=== PATIENT | female | born 1995 | race Caucasian/White ===

== ENCOUNTER 2018-12-22 16:04 | Emergency (ER) | payer OTHER ==
[2018-12-22] MEDS ORDERED: ONDANSETRON HCL INJ/PF 4 MG/2 ML SDV IV ONE (17:31)
[2018-12-22] MEDS ORDERED: KETOROLAC TROMETHAMINE INJ/PF 30 MG/1 ML SDV IV ONE (17:31)
[2018-12-22] MEDS ORDERED: NORMAL SALINE 1000 ML 1,000 ML IV ONE (17:31)
--- NOTE | 2018-12-22 17:39 | ER Document Report ---
ED GI/ - General Chief Complaint: Abdominal Pain Stated Complaint: ABDOMINAL PAIN Time Seen by Provider: 12/22/18 17:23 Primary Care Provider: MURALI CALI [NO LOCAL MD] - Follow up as needed Mode of Arrival: Ambulatory Information source: Patient Notes: 23-year-old female presented to ED for complaint of lower abdominal lower back and upper abdominal pain since yesterday. She states that she had an IUD put in the last week and it was cramping right after the IUD was placed and then now the pain is much worse. She states she was on her period when the IUD was placed and then it stopped and now it started again. She states she is also had nausea vomiting and diarrhea since yesterday. Patient is alert oriented respirations regular and unlabored speaking in full sentences she is able to walk with even steady gait. TRAVEL OUTSIDE OF THE [place] IN LAST 30 DAYS: No - HPI Patient complains to provider of: Abdominal pain, Diarrhea, Pelvic pain, Vomiting Onset: Other - 2 days Timing/Duration: Gradual, Worse Quality of pain: Sharp, Throbbing Severity at maximum: Severe Severity in ED: Moderate Pain Level: 3 Location: Epigastric, Low back, Suprapubic Vaginal bleeding (Compared to normal period): Spotting LMP: Last week IUD placed last week Sexual history: IUD Associated symptoms: Chills, Diarrhea, Nausea, Vomiting Exacerbated by: Movement, Walking Relieved by: Denies Similar symptoms previously: Yes Recently seen / treated by doctor: No - Related Data Allergies/Adverse Reactions: No Known Allergies Allergy (Verified 12/22/18 16:11) Past Medical History - General Information source: Patient - Social History Smoking Status: Never Smoker Frequency of alcohol use: Social Drug Abuse: Marijuana Lives with: Family Family History: Reviewed & Not Pertinent Patient has suicidal ideation: No Patient has homicidal ideation: No - Past Medical History Cardiac Medical History: Reports: None Pulmonary Medical History: Reports: None EENT Medical History: Reports: None Neurological Medical History: Reports: None Endocrine Medical History: Reports: None Renal/ Medical History: Reports: None Malignancy Medical History: Reports: None GI Medical History: Reports: None Musculoskeletal Medical History: Reports None Skin Medical History: Reports None Psychiatric Medical History: Reports: None Traumatic Medical History: Reports: None Infectious Medical History: Reports: None Surgical Hx: Negative Past Surgical History: Reports: None - Immunizations Immunizations up to date: Yes Review of Systems - Review of Systems Constitutional: No symptoms reported EENT: No symptoms reported Cardiovascular: No symptoms reported Respiratory: No symptoms reported Gastrointestinal: Abdominal pain, Diarrhea, Nausea, Vomiting Genitourinary: Other - iud last week Female Genitourinary: No symptoms reported Musculoskeletal: No symptoms reported Skin: No symptoms reported Hematologic/Lymphatic: No symptoms reported Neurological/Psychological: No symptoms reported -: Yes All other systems reviewed and negative Physical Exam - Vital signs Vitals: Temp Pulse Resp BP Pulse Ox 98.7 F 115 H 16 120/53 L 100 12/22/18 16:14 12/22/18 16:14 12/22/18 16:14 12/22/18 16:14 12/22/18 16:14 Interpretation: Normal - General General appearance: Appears well, Alert - HEENT Head: Normocephalic, Atraumatic Eyes: Normal Pupils: PERRL - Respiratory Respiratory status: No respiratory distress Chest status: Nontender Breath sounds: Normal Chest palpation: Normal - Cardiovascular Rhythm: Regular Heart sounds: Normal auscultation Murmur: No - Abdominal Inspection: Normal Distension: No distension Bowel sounds: Normal Tenderness: Tender - upper, suprapubic and pelvic Organomegaly: No organomegaly - Back Back: Normal, Nontender - Extremities General upper extremity: Normal inspection, Nontender, Normal color, Normal ROM, Normal temperature General lower extremity: Normal inspection, Nontender, Normal color, Normal ROM, Normal temperature, Normal weight bearing. No: Enzo's sign - Neurological Neuro grossly intact: Yes Cognition: Normal Orientation: AAOx4 [place] Coma Scale Eye Opening: Spontaneous Lady Coma Scale Verbal: Oriented Lady Coma Scale Motor: Obeys Commands Lady Coma Scale Total: 15 Speech: Normal Motor strength normal: LUE, RUE, LLE, RLE Sensory: Normal - Psychological Associated symptoms: Normal affect, Normal mood - Skin Skin Temperature: Warm Skin Moisture: Dry Skin Color: Normal Course - Re-evaluation Re-evalutation: 12/22/18 21:52 Discussed labs and ultrasound with patient and mother. Patient still refused a pelvic exam. I went and consulted Dr. Bowen. He states that the patient needed a pelvic exam before discharge. I went back and discussed this with the patient explained to her that she needed this before I could discharge her. She did agree to get the pelvic exam. She did have right adnexal tenderness but no cervical motion tenderness. She does have a bloody discharge wet mount and GC and chlamydia were sent to the lab. - Vital Signs Vital signs: Temp Pulse Resp BP Pulse Ox 98.7 F 92 18 128/96 H 100 12/22/18 16:14 12/22/18 22:46 12/22/18 22:46 12/22/18 22:46 12/22/18 22:46 - Laboratory Result Diagrams: 12/22/18 18:00 12/22/18 18:00 Laboratory results interpreted by me: 12/22/18 12/22/18 12/22/18 14:49 18:00 18:00 WBC 18.6 H Seg Neuts % (Manual) 86 H Lymphocytes % (Manual) 11 L Monocytes % (Manual) 2 L Abs Neuts (Manual) 16.0 H Glucose 113 H Urine Protein 100 H Urine Ketones 80 H Urine Blood LARGE H Ur Leukocyte Esterase MODERATE H - Diagnostic Test Radiology reviewed: Image reviewed, Reports reviewed Discharge - Discharge Clinical Impression: Pelvic pain, PID (acute pelvic inflammatory disease) UTI (urinary tract infection) Qualifiers: Urinary tract infection type: acute cystitis Hematuria presence: with hematuria Qualified Code(s): N30.01 - Acute cystitis with hematuria Condition: Stable Disposition: HOME, SELF-CARE Additional Instructions: PELVIC PAIN: There are many causes of pain in the pelvic area. The cause could be the tubes, ovaries, uterus, intestines, appendix, pelvic muscles and connective tissue, or the urinary tract. The cause of your pelvic pain is not clear. However, it seems safe to treat you outside the hospital. If the pain sounds like a temporary problem, we sometimes wait to see if it goes away. Other patients may need additional tests, such as pelvic ultrasound or cultures. Conditions may change. Call us or come back for reexamination if any problems occur, such as: (1) Pain that becomes more severe, steady, or becomes concentrated in one specific area. Also, pain that is more severe with movement or coughing. (2) Vomiting that persists or becomes more frequent. (3) Blood in the vomitus, urine, or bowel movements. Blood in the stool may have a tarry or black appearance. (4) Shaking chills or fever greater than 100 degrees. (5) The abdomen becomes more distended or swollen. (6) Bowel movements cease. (7) Heavy vaginal bleeding. PELVIC INFLAMMATORY DISEASE: You have been diagnosed as having pelvic inflammatory disease (PID). This is an infection of the fallopian tubes and surrounding areas of the pelvis. Symptoms are usually pelvic pain and discharge. The infection can do permanent damage to the tubes and ovaries. It should be taken very seriously. Treatment is antibiotics, which may be given by vein or by injection if the infection seems serious. It's important that you receive all recommended medication. Condoms help prevent spread of this infection to others. Because this infection is spread sexually, it's important that your sexual partner be checked before resuming sexual relations. If a culture shows gonorrhea or chlamydia organisms, the law requires that this be reported to the health department. Call the doctor or return at once if you develop increasing fever, rash, severe pelvic pain, vaginal bleeding (other than your period), or problems with your bladder or bowels. URINARY TRACT INFECTION: Your evaluation indicates that you have a urinary tract infection. This is due to germs growing in the bladder. This is a common problem. This infection usually responds quickly to antibiotics. Your antibiotic should be taken exactly as prescribed. Drink plenty of fluids -- three to four quarts a day. Occasionally, a bladder anesthetic will be prescribed to help stop the feeling of urgency until the antibiotic has a chance to clear the infection. This may cause your urine to be dark orange. Certain urine infections require a culture. If the doctor obtained a culture, the results will be back in two days. You should call to see if a change in treatment is needed. A repeat urinalysis after you finish treatment is often recommended. The physician will let you know if further testing is required. Call the doctor if you develop fever, chills, flank pain, inability to urinate, or blood in the urine. I only have one person with left which was [id number] they must and I do not most the patient is here along with just doing now TORADOL INJECTION: You have been given an injection of ketorolac tromethamine (Toradol). This is an excellent, safe drug for pain control. It also has potent a ntiinflammatory action. You should have significant pain relief within about one hour. Toradol is not addicting and is non-sedating. It does not interfere with driving or work. Call or return if you develop itching, hives, shortness of breath, or rash. ANTIBIOTIC THERAPY: You have been given an antibiotic prescription. It's important that you take all the medication, unless instructed otherwise by your physician. Failure to complete the entire course can result in relapse of your condition. Common side effects of antibiotics include nausea, intestinal cramping, or diarrhea. Women may develop vaginal yeast infections, and babies can get yeast (thrush) in the mouth following the use of antibiotics. Contact your physician if you develop significant side effects from this medication. Allergy to this antibiotic can result in hives, wheezing, faintness, or itching. If symptoms of allergy occur, stop the medication and call the doctor. CEPHALOSPORINS: An antibiotic of the cephalosporin class has been prescribed. This type of antibiotic covers a wide variety of infections, including those of the skin, lungs, middle ear, and urinary tract. This antibiotic is somewhat similar to the penicillin family. In rare cases, a person who is allergic to penicillin will also be allergic to this medication. If you have had a severe allergic reaction to penicillin, and have not taken this antibiotic since that time, notify your doctor. Antibiotics which cover many germs ("broad spectrum" antibiotics) are more likely to cause diarrhea or "yeast" infections. Women prone to vaginal yeast problems may suffer an attack after taking this antibiotic. In infants, oral thrush (white spots "stuck" on the cheek) or yeast diaper rash may result. See your doctor if these problems occur. Call the doctor at once if you develop hives, itching, shortness of breath, or lightheadedness. DOXYCYCLINE: Doxycycline (Vibramycin, Doryx) is an antibiotic of the tetracycline family. This type of drug is useful for infections of the respiratory tract and genital tract, and is sometimes used for intestinal infections. Unlike most tetracyclines, doxycycline can be taken with food. It is longer acting, and (usually) less prone to side effects than regular tetracycline. Tetracycline antibiotics can stain immature teeth and SHOULD NOT BE TAKEN BY CHILDREN, NURSING MOTHERS, OR WOMEN. Tetracyclines can make you more prone to sunburn. Abdominal cramping, nausea, and diarrhea are occasional side effects. Women may experience vaginal yeast infections. Call the doctor at once if you develop hives, itching, shortness of breath, or lightheadedness. AZITHROMYCIN: Azithromycin (Zithromax) is a broad spectrum antibiotic in the same class as erythromycin. It can treat a variety of bacterial infections, but is most frequently used for respiratory infections. Azithromycin is extremely long-lasting. It accumulates in body tissues and continues to kill bacteria for many days. In order to improve absorption, Azithromycin should be taken at least one hour before or two hours after a meal. It does not have the same strong tendency to upset the stomach as erythromycin and is usually very well claire ated. Patients who have had a rash or other true allergic reactions to erythromycin should not take this medication. Call if you develop gastrointestinal distress, severe diarrhea, rash, hives, itching, or shortness of breath. Please call me in about 45 minutes for the results of your wet mount which is the trichomonas bacterial vaginosis and yeast. Then you could call me in about 2 hours for the results of your GC and chlamydia if you need any prescriptions I will leave them at the front services agent as we described. You have already been treated with the Rocephin and azithromycin and doxycycline and you will get a prescription for the doxycycline. FOLLOW-UP CARE: If you have been referred to a physician for follow-up care, call the physicians office for an appointment as you were instructed or within the next two days. If you experience worsening or a significant change in your symptoms, notify the physician immediately or return to the Emergency Department at any time for re-evaluation. Prescriptions: Doxycycline Hyclate 100 mg PO BID #14 capsule Metronidazole [Flagyl 500 mg Tablet] 500 mg PO BID #14 tablet Referrals: LOCAL,NO [NO LOCAL MD] - Follow up as needed
[2018-12-22 18:02] LABS: APPEARANCE,URINE SLIGHTLY-CLOUDY; BILIRUBIN,URINE NEGATIVE (NEGATIVE); GLUCOSE, URINE NEGATIVE (NEGATIVE); KETONES,URINE 80 mg/dL (NEGATIVE); LEUKOCYTE ESTERASE,URINE MODERATE (NEGATIVE); NITRITE,URINE NEGATIVE (NEGATIVE); PROTEIN,URINE 100 mg/dL (NEGATIVE); URINE SPECIFIC GRAVITY 1.028; UROBILINOGEN,URINE NEGATIVE mg/dL (<2.0)
[2018-12-22 18:03] LABS: COLOR,URINE YELLOW
[2018-12-22 18:26] LABS: HEMATOCRIT 39.6 % (36.0-47.0); HEMOGLOBIN 13.3 g/dL (12.0-15.5); MEAN CORPUSCULAR HEMOGLOBIN 30.4 pg (27.0-33.4); MEAN CORPUSCULAR HGB CONC 33.7 g/dL (32.0-36.0); MEAN CORPUSCULAR VOLUME 90 fl (80-97); PLATELET COUNT 335 10^3/uL (150-450); RED BLOOD COUNT 4.38 10^6/uL (3.72-5.28); RED CELL DISTRIBUTION WIDTH 13.3 % (11.5-14.0); WHITE BLOOD COUNT 18.6 10^3/uL (4.0-10.5)
[2018-12-22 18:41] LABS: ALBUMIN 4.2 g/dL (3.5-5.0); ALKALINE PHOSPHATASE 85 U/L (38-126); ANION GAP 12 (5-19); ASPARTATE AMINO TRANSFERASE 21 U/L (14-36); BILIRUBIN,DIRECT 0.4 mg/dL (0.0-0.4); BILIRUBIN,TOTAL 1.3 mg/dL (0.2-1.3); BLOOD UREA NITROGEN 7 mg/dL (7-20); CALCIUM 9.4 mg/dL (8.4-10.2); CARBON DIOXIDE 23 mmol/L (22-30); CHLORIDE 102 mmol/L (98-107); GLUCOSE 113 mg/dL (75-110); POTASSIUM 4.2 mmol/L (3.6-5.0); TOTAL PROTEIN 7.4 g/dL (6.3-8.2)
[2018-12-22 19:02] LABS: ABSOLUTE MONOCYTES # (MANUAL) 0.4 10^3/uL (0.1-1.4); BASOPHILS % (MANUAL) 1 % (0-2); EOSINOPHILS % (MANUAL) 0 % (0-6); LYMPHOCYTES % (MANUAL) 11 % (13-45); MONOCYTES % (MANUAL) 2 % (3-13); SEGMENTED NEUTROPHILS % (MAN) 86 % (42-78); TOTAL CELLS COUNTED 100
[2018-12-22 19:03] LABS: PLATELET COMMENT ADEQUATE; PLATELET LARGE PRESENT
--- NOTE | 2018-12-22 20:35 | RADIOLOGY REPORT (SQ) ---
US PELVIS EXAM DATE: 12/22/2018 5:32 PM CDT HISTORY: Pelvic pain. COMPARISON: None. TECHNIQUE: Grayscale, color Doppler, and spectral Doppler ultrasound images of the pelvis were obtained. FINDINGS: The uterus is retroverted and measures 7.5 x 4.5 x 4.8 cm. The cervix measures 2.1 cm in length. There is an intrauterine device which appears in appropriate position. The ovaries are normal in size with normal follicles and contain normal color Doppler blood flow. There is a small amount of pelvic free fluid in the posterior cul-de-sac. IMPRESSION: IUD in appropriate position. Normal ovaries.
[2018-12-22] MEDS ORDERED: CEFTRIAXONE INJ 250 MG VIAL IM ONE (21:44)
[2018-12-22] MEDS ORDERED: DOXYCYCLINE HYCLATE 100 MG TABLET PO ONE (21:44)
[2018-12-22] MEDS ORDERED: LIDOCAINE 1% INJ-PF (10 MG/ML) 30 ML SDV INJ ONE (21:44)
[2018-12-22] MEDS ORDERED: AZITHROMYCIN 250 MG TABLET PO ONE (21:44)
[2018-12-22] MEDS ORDERED: HYDROCODONE/ACETAMINOPHEN 5-325 MG TABLET PO ONE (22:37)
[2018-12-22 22:47] VITALS: BP 128/96
[2018-12-22 22:54] LABS: RBCS (WET MOUNT) 1+ RBCS SEEN; T.VAGINALIS (WET MOUNT) NO TRICHOMONAS SEEN; YEAST (WET MOUNT) NO YEAST SEEN
[2018-12-22 22:55] LABS: WBCS (WET MOUNT) RARE WBCS SEEN
[2018-12-23 00:16] LABS: CHLAM PCR NOT DETECTED (NOT DETECT)
== END 2018-12-22 22:51 | disposition home or self-care (01) ==
LOC: ER 16:04
DX: N30.01 Acute cystitis with hematuria (principal); N73.9 Female pelvic inflammatory disease, unspecified; R10.2 Pelvic and perineal pain; R10.30 Lower abdominal pain, unspecified; M54.5 Low back pain; R10.10 Upper abdominal pain, unspecified; R11.2 Nausea with vomiting, unspecified; R19.7 Diarrhea, unspecified; R11.10 Vomiting, unspecified; R10.13 Epigastric pain
CPT/HCPCS: 36415; 87210; 83690; 84703; 85025; 80053; 81001; 87491; 87591; 76830; J3490; J1885; J2405; J7030; J0696; 96361; 96372; 96374; 96375; 99283